=== PATIENT | female | born 1945 | race Caucasian/White ===

== ENCOUNTER → 2017-05-10 08:46 | Outpatient (CLI) | payer MEDICARE, BC ==
[2013-06-08 14:56] VITALS: BMI 26.2
[~2017-05-10 08:46] MED LIST: ASPIRIN325 MG PO; BENADRYL25 M1 PO; DESYREL50 MG PO; FOLIC ACID1 MG PO; K-DUR20 MEQ PO; METAMUCIL PACKE1 PKT PO; MILK OF MAGNESI30 ML PO; NEXIUM40 MG PO; NORCO 5/325 TAB1 TA1 PO; NORCO 7.5-3251 EACH PO; PLAVIX75 MG PO; PROTONIX40 MG PO; TYLENOL325 MG PO; ZANAFLEX2 MG PO; ZOCOR20 MG PO; ZOFRAN4 MG PO
== END | disposition home or self-care (01) ==
LOC: D.CT 08:46
DX: R10.9 Unspecified abdominal pain (principal); I35.0 Nonrheumatic aortic (valve) stenosis

== ENCOUNTER 2019-02-01 19:00 | Outpatient (CLI) | payer MEDICARE, BC ==
[2013-06-08 14:56] VITALS: BMI 26.2
== END 2019-02-01 23:59 | disposition home or self-care (01) ==
LOC: D.MAMMO 19:00
PROVIDERS: ATTEND Nurse Practitioner Family
DX: Z12.31 Encounter for screening mammogram for malignant neoplasm of breast (principal)

== ENCOUNTER → 2021-02-06 10:00 | Outpatient (CLI) | payer MEDICARE, BC ==
[2013-06-08 14:56] VITALS: BMI 26.2
== END | disposition home or self-care (01) ==
LOC: D.LAB 08:30 → D.RT 09:30 → D.LAB 10:00
PROVIDERS: ATTEND Internal Medicine Pulmonary Disease
DX: R06.00 Dyspnea, unspecified (principal); Z11.52 Encounter for screening for COVID-19